=== PATIENT | male | born 1955 | race Caucasian/White ===

== ENCOUNTER 2020-08-25 14:43 | Observation (INO) ==
[2020-08-25 15:18] LABS: Basophils # 0.1 10*3/uL (0.0-0.2); Basophils % 0.9 % (0.0-0.8); Eosinophils # 0.1 10*3/uL (0.0-0.87); Eosinophils % 0.7 % (0.00-10.9); Hematocrit 47.2 VOL% (42.0-52.0); Hemoglobin 15.7 GM/DL (14.0-18.0); Immature Granulocytes % 0.7 %; Immature Granulocytes Absolute 0.08 #; Lymphocytes # 2.3 10*3/uL (1.4-4.0); Lymphocytes % 20.2 % (21.2-54.2); Mean Corpuscular HGB Conc 33.3 GM/DL (32-36); Mean Corpuscular Volume 89.4 FL (87-102); Mean Platelet Volume 13.5 FL (9.6-12.0); Monocytes % 13.4 % (1.7-12.7); Neutrophils % 64.1 % (38.7-73.9); Platelet Count 179 T/CUMM (130-400); Red Blood Count 5.28 MC/CUMM (3.8-5.5); Red Cell Distribution Width 15.2 % (9.3-17.3); White Blood Count 11.6 T/CUMM (4-12)
[2020-08-25 15:50] LABS: Albumin 2.6 G/DL (3.4-5.0); Bilirubin,Total 8.7 MG/DL (0.2-1.0); Calcium 8.3 MG/DL (8.5-10.1); Osmolality,Calculated 268.4 MOS/KG (273-304)
[2020-08-25] MEDS ORDERED: SODIUM CHLORIDE 0.9% 1,000 ML IV STA (16:06)
[2020-08-25 16:38] LABS: Atypical Lymphocytes 2+; Eosinophils 2 % (0-10); Hypochromasia 3+; Lymphocytes 19 % (20-55); Segmented Neutrophils 75 % (50-85); Total Cells Counted 100
[2020-08-25 16:39] LABS: Platelet Estimate Normal; Polychromasia 1+
[2020-08-25] MEDS ORDERED: PIPERACILLIN/TAZOBACTAM 3,375 MG in SODIUM CHLORIDE 0.9% 100 ML IV STA (17:03)
[2020-08-25 17:36] LABS: HIV Antigen/Antibody Result Nonreactive (Nonreactive); Hepatitis B Core IgM Quant > 9.00 Index; Hepatitis B Surface Ag Quant 0.14 Index; Hepatitis B Surface Ag Result Negative (Negative); Hepatitis C Virus Ab Quant 0.02 Index; Hepatitis C Virus Ab Result Negative (Negative)
[2020-08-25] MEDS ORDERED: DEXTROSE 50% 25 GM/50 ML SYRINGE IV PRN (18:25)
[2020-08-25] MEDS ORDERED: ONDANSETRON 4 MG/2 ML VIAL IV PRN ×2 (18:25→20:18)
[2020-08-25] MEDS ORDERED: SODIUM CHLORIDE 0.9% 1,000 ML IV SCH (18:30)
[2020-08-25] MEDS ORDERED: DEXTROSE 50% 25 GM/50 ML VIAL IV PRN (20:18)
[2020-08-25] MEDS: SODIUM CHLORIDE 0.9% 1,000 ML IV SCH (20:32)
[2020-08-25] MEDS ORDERED: INSULIN REGULAR 100 UNIT/ML SUBCUT SCH (21:00)
[2020-08-25] MEDS: INSULIN REGULAR 100 UNIT/ML SUBCUT SCH (21:41)
[2020-08-25 21:50] LABS: Blood, Urine Negative (Negative); Glucose,Urine (UA) Negative (Negative); Ketones,Urine Negative (Negative); Nitrite,Urine Negative (Negative); Protein,Urine Negative; RBC,Urine 7 /HPF (0-4); Squamous Epithelial Cell,Urine Occasional /HPF (0-10); Urine Appearance CLEAR (Clear); Urine Color Amber (Yellow); Urine Specific Gravity > 1.060 (1.001-1.035); WBC,Urine 1 /HPF (0-6)
[2020-08-25 21:55] LABS: Bilirubin,Urine Moderate mg/dL (Negative)
[2020-08-26] MEDS: PIPERACILLIN/TAZOBACTAM 3,375 MG in SODIUM CHLORIDE 0.9% 100 ML IV SCH ×3 (00:45→17:20)
[2020-08-26 02:56] LABS: Basophils # 0.1 10*3/uL (0.0-0.2); Basophils % 0.7 % (0.0-0.8); Eosinophils # 0.1 10*3/uL (0.0-0.87); Eosinophils % 0.9 % (0.00-10.9); Hematocrit 43.1 VOL% (42.0-52.0); Hemoglobin 14.3 GM/DL (14.0-18.0); Immature Granulocytes % 0.6 %; Immature Granulocytes Absolute 0.05 #; Lymphocytes # 1.9 10*3/uL (1.4-4.0); Lymphocytes % 21.7 % (21.2-54.2); Mean Corpuscular HGB Conc 33.2 GM/DL (32-36); Mean Corpuscular Volume 90.9 FL (87-102); Mean Platelet Volume 13.7 FL (9.6-12.0); Monocytes % 15.3 % (1.7-12.7); Neutrophils % 60.8 % (38.7-73.9); Platelet Count 157 T/CUMM (130-400); Red Blood Count 4.74 MC/CUMM (3.8-5.5); Red Cell Distribution Width 15.5 % (9.3-17.3); White Blood Count 8.7 T/CUMM (4-12)
[2020-08-26 03:07] LABS: Albumin 2.3 G/DL (3.4-5.0); Bilirubin,Total 7.1 MG/DL (0.2-1.0); Calcium 7.6 MG/DL (8.5-10.1); Osmolality,Calculated 277.1 MOS/KG (273-304); Total Protein 6.5 G/DL (6.4-8.3)
[2020-08-26] MEDS ORDERED: VANCOMYCIN INJ 1,000 MG in SODIUM CHLORIDE 0.9% 250 ML IV ONE (04:00)
[2020-08-26] MEDS ORDERED: ACETAMINOPHEN 325 MG TABLET PO ONE (04:00)
[2020-08-26] MEDS ORDERED: INFLUENZA VIRUS VACCINE 0.5 ML SYRINGE IM ONE (04:09)
[2020-08-26 04:18] LABS: Anisocytosis 1+; Band Neutrophils 2 % (0-10); Eosinophils 2 % (0-10); Lymphocytes 22 % (20-55); Macrocytosis 1+; Platelet Estimate Adequate; Polychromasia 2+; Segmented Neutrophils 64 % (50-85); Total Cells Counted 100
[2020-08-26 04:19] LABS: Atypical Lymphocytes Few; Reactive Lymphocytes Few
[2020-08-26] MEDS: SODIUM CHLORIDE 0.9% 1,000 ML IV SCH ×2 (06:28→17:20)
[2020-08-26] MEDS: INSULIN REGULAR 100 UNIT/ML SUBCUT SCH ×4 (08:16→21:11)
[2020-08-26] MEDS: PANTOPRAZOLE 40 MG TABLET PO SCH (08:16)
[2020-08-26] MEDS ORDERED: PANTOPRAZOLE 40 MG TABLET PO SCH (09:00)
[2020-08-26] MEDS ORDERED: IBUPROFEN 200 MG TABLET PO PRN (11:20)
[2020-08-26] MEDS: VANCOMYCIN INJ 1,500 MG in SODIUM CHLORIDE 0.9% 500 ML IV SCH (14:52)
[2020-08-26 15:11] LABS: Barbiturates Screen,Urine Negative (Negative); Benzodiazepines Screen,Urine Negative (Negative); Cannabinoid Screen,Urine Negative (Negative); Opiate Screen,Urine Negative (Negative); Phencyclidine Screen,Urine Negative (Negative)
[2020-08-26 15:14] LABS: Blood, Urine Negative (Negative); Glucose,Urine (UA) >=500 mg/dL (Negative); Ketones,Urine Negative (Negative); Nitrite,Urine Negative (Negative); Protein,Urine Negative; RBC,Urine 1 /HPF (0-4); Urine Appearance CLEAR (Clear); Urine Color Amber (Yellow); Urine Specific Gravity 1.025 (1.001-1.035); WBC,Urine 1 /HPF (0-6)
[2020-08-26 15:15] LABS: Bilirubin,Urine Small mg/dL (Negative)
[2020-08-26] MEDS: traMADol 50 MG TABLET PO PRN (21:11)
[2020-08-27] MEDS: PIPERACILLIN/TAZOBACTAM 3,375 MG in SODIUM CHLORIDE 0.9% 100 ML IV SCH ×2 (00:34→08:29)
[2020-08-27] MEDS: VANCOMYCIN INJ 1,500 MG in SODIUM CHLORIDE 0.9% 500 ML IV SCH (05:23)
[2020-08-27 07:03] LABS: Basophils # 0.1 10*3/uL (0.0-0.2); Basophils % 0.6 % (0.0-0.8); Eosinophils # 0.1 10*3/uL (0.0-0.87); Eosinophils % 1.3 % (0.00-10.9); Hematocrit 37.7 VOL% (42.0-52.0); Hemoglobin 12.9 GM/DL (14.0-18.0); Immature Granulocytes % 0.7 %; Immature Granulocytes Absolute 0.06 #; Lymphocytes # 2.2 10*3/uL (1.4-4.0); Lymphocytes % 26.4 % (21.2-54.2); Mean Corpuscular HGB Conc 34.2 GM/DL (32-36); Mean Corpuscular Volume 86.5 FL (87-102); Mean Platelet Volume 13.2 FL (9.6-12.0); Monocytes % 14.4 % (1.7-12.7); Neutrophils % 56.6 % (38.7-73.9); Platelet Count 172 T/CUMM (130-400); Red Blood Count 4.36 MC/CUMM (3.8-5.5); Red Cell Distribution Width 15.1 % (9.3-17.3); White Blood Count 8.2 T/CUMM (4-12)
[2020-08-27 07:32] LABS: Bilirubin,Direct 6.63 MG/DL (0.0-0.20); Bilirubin,Indirect 1.4 MG/DL (0.0-1.0); Calcium 7.7 MG/DL (8.5-10.1); Osmolality,Calculated 274.8 MOS/KG (273-304); Total Protein 6.2 G/DL (6.4-8.3)
[2020-08-27] MEDS: PANTOPRAZOLE 40 MG TABLET PO SCH (08:28)
[2020-08-27] MEDS: INSULIN REGULAR 100 UNIT/ML SUBCUT SCH ×4 (08:28→20:20)
[2020-08-27] MEDS: SODIUM CHLORIDE 0.9% 1,000 ML IV SCH ×3 (08:29→22:50)
[2020-08-27 13:07] LABS: Eosinophils 1 % (0-10); Lymphocytes 19 % (20-55); Segmented Neutrophils 66 % (50-85); Target Cells Few; Total Cells Counted 100
[2020-08-27 13:08] LABS: Platelet Estimate Adequate; Polychromasia Slight
[2020-08-27] MEDS: traMADol 50 MG TABLET PO PRN (20:20)
[2020-08-28 08:07] LABS: Basophils % 0.6 % (0.0-0.8); Eosinophils # 0.1 10*3/uL (0.0-0.87); Eosinophils % 1.3 % (0.00-10.9); Hematocrit 37.6 VOL% (42.0-52.0); Hemoglobin 12.6 GM/DL (14.0-18.0); Immature Granulocytes % 0.9 %; Immature Granulocytes Absolute 0.06 #; Lymphocytes # 1.8 10*3/uL (1.4-4.0); Lymphocytes % 24.9 % (21.2-54.2); Mean Corpuscular HGB Conc 33.5 GM/DL (32-36); Mean Corpuscular Volume 88.3 FL (87-102); Mean Platelet Volume 12.9 FL (9.6-12.0); Neutrophils % 58.3 % (38.7-73.9); Platelet Count 201 T/CUMM (130-400); Red Blood Count 4.26 MC/CUMM (3.8-5.5); Red Cell Distribution Width 15.4 % (9.3-17.3)
[2020-08-28 08:28] LABS: Albumin 1.8 G/DL (3.4-5.0); Bilirubin,Direct 5.42 MG/DL (0.0-0.20); Bilirubin,Indirect 1.8 MG/DL (0.0-1.0); Bilirubin,Total 7.2 MG/DL (0.2-1.0); Calcium 7.7 MG/DL (8.5-10.1); Total Protein 6.3 G/DL (6.4-8.3)
[2020-08-28 08:55] LABS: Band Neutrophils 1 % (0-10); Eosinophils 1 % (0-10); Lymphocytes 17 % (20-55); Segmented Neutrophils 63 % (50-85); Total Cells Counted 100
[2020-08-28 08:56] LABS: Hypochromasia 1+; Platelet Estimate Adequate
[2020-08-28 09:07] VITALS: BP 147/68
[2020-08-28] MEDS: SODIUM CHLORIDE 0.9% 1,000 ML IV SCH (09:19)
[2020-08-28] MEDS: INSULIN REGULAR 100 UNIT/ML SUBCUT SCH ×2 (09:19→12:32)
[2020-08-28] MEDS: PANTOPRAZOLE 40 MG TABLET PO SCH (09:44)
== END 2020-08-28 13:58 | disposition home or self-care (01) ==
LOC: N.EDINP 14:43 → N.ED 14:43 → N.3E 19:42
PROVIDERS: ADMIT Family Medicine; ATTEND Family Medicine